=== PATIENT | female | born 1985 | race Caucasian/White ===

== ENCOUNTER 2022-02-16 12:10 | Outpatient (REF) | payer OTHER, SELFPAY ==
--- NOTE | ~2022-02-16 | XR_ITS ---
EXAMINATION: XR RIBS, BILATERAL CLINICAL INFORMATION: Bilateral rib pain COMPARISON: None TECHNIQUE: 3 views of the bilateral ribs were obtained. AP chest. FINDINGS: Lungs are clear. No consolidation, pneumothorax, or pleural effusion. The cardiomediastinal silhouette and pulmonary vasculature are normal. Osseous structures are unremarkable. Ribs are intact. No fractures are identified. XR/XR ribs BI min 4V w CXR1V IMPRESSION: Unremarkable examination.
[2022-02-16 14:01] LABS: Baso%MD 0.4 %; Eos%MD 0.7 %; Hematocrit 43.1 % (37.0-47.0); Hemoglobin 14.3 g/dl (12.0-16.0); IG%MD 0.2 %; Lymph%MD 30.3 %; Mean Corpuscular HGB Conc 33.2 g/dl (31.0-35.0); Mean Corpuscular Hemoglobin 28.4 pg (27.0-33.0); Mean Corpuscular Volume 85.7 fL (80.0-98.0); Mean Platelet Volume 10.1 fL (9.4-12.3); Mono%MD 6.9 %; Neut%MD 61.5 %; Platelet Count 285 X10*3/uL (160-400); Red Blood Count 5.03 X10*6/uL (4.20-5.50); Red Cell Distribution Width 12.2 % (11.0-16.0); White Blood Count 8.2 X10*3/uL (4.8-10.8)
[2022-02-16 14:15] LABS: Alanine Aminotransferase 23 U/L (0-31); Albumin Level 4.8 g/dL (3.5-5.0); Alkaline Phosphatase 62 U/L (39-117); Anion Gap 14 (12-20); Aspartate Amino Transferase 22 U/L (5-31); Blood Urea Nitrogen 11 mg/dL (9-16); Calcium 9.8 mg/dL (8.4-10.2); Carbon Dioxide 24 mmol/L (22-29); Chloride 104 mmol/L (96-108); Cholesterol 207 mg/dL; Estimated Glomerular Filt Rate > 60; Glucose Fasting 86 mg/dL (60-99); HDL Cholesterol 44 mg/dL; LDL Cholesterol Calculated 136 mg/dl; Rheumatoid Factor < 15.0 IU/mL (<15.0); Sodium 138 mmol/L (135-145); Total Protein 7.9 g/dL (6.5-8.0); Triglycerides 139 mg/dL
[2022-02-16 14:28] LABS: Band Neutrophils Percent 0 % (3-5); Eosinophils Absolute Manual 0.1 X10*3/uL (0.0-0.4); Eosinophils Percent Manual 1 % (0-4); Lymphocytes Absolute Manual 1.9 X10*3/uL (1.2-4.9); Lymphocytes Percent Manual 23 % (20-40); Monocytes Absolute Manual 0.6 X10*3/uL (0.1-1.2); Monocytes Percent Manual 7 % (2-11); Neutrophils Absolute Manual 5.7 X10*3/uL (2.0-8.3); Neutrophils Percent Manual 69 % (45-73)
[2022-02-16 14:29] LABS: Platelet Estimate NORMAL (NORMAL); Platelet Morphology Comment NORMAL; RBC Morphology NORMAL
[2022-02-16 14:39] LABS: TSH reflex Free T4 1.01 uIU/mL (0.32-4.0)
[2022-02-18 13:02] LABS: Cyclic Citrullinated Peptide <16 UNITS
[2022-02-19 11:21] LABS: Anti Nuclear Antibody Screen NEGATIVE (NEGATIVE)
== END 2022-02-16 12:11 | disposition home or self-care (01) ==
LOC: HO.HMGCX 12:10
PROVIDERS: PCP Internal Medicine; Visit Provider Internal Medicine
DX: Z00.00 Encounter for general adult medical examination without abnormal findings (principal); M25.569 Pain in unspecified knee; M25.50 Pain in unspecified joint; F32.A Depression, unspecified; R07.81 Pleurodynia
CPT/HCPCS: 36415; 71111; 80053; 80061; 84443; 85007; 85027; 86038; 86039; 86140; 86200; 86431

== ENCOUNTER 2024-02-04 11:43 | Outpatient (AMB) | payer OTHER, SELFPAY ==
[2024-02-04 12:05] VITALS: BP 102/60; PULSE 70; O2SAT 98; BMI 34.0
--- NOTE | 2024-02-04 12:05 | A.OFFPC_ITS ---
Vital Signs 02/04/24 12:05 Height 5 ft 2 in Weight 186 lb BMI 34.0 BP 102/60 Blood Pressure Location Lt brachial Position Sitting Pulse 70 Pulse Source Pulse Oximeter Pulse Oximetry (%) 98 Oxygen Delivery Method Room Air Intake Visit Reasons: Physical Intake Note: pt is here for her physical exam last pap: @ [facility] - 2019 - due this year Licensed Direct Entry Midwife Required: No Allergies No Known Allergies Allergy (Verified 02/04/24 12:06) Medication List - Last Reconciled 02/04/24 by Tatiana Chacon MD sertraline 100 mg PO BID valacyclovir 500 mg PO DAILY Tobacco use date assessed: 02/04/24 Dental Screening Dental Screen Date: 02/04/24 Did you have a dental visit in the last 12 months?: Yes Did you have a dental problem in the last 6 months where you did not have access to dental care?: No Was dental information given to patient?: Patient has dentist HPI Physical HPI Details Pt presents for PE. 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 1. Little interest or pleasure in doing things: not at all 2. Feeling down, depressed, or hopeless: not at all 3. Trouble falling or staying asleep, or sleeping too much: not at all 4. Feeling tired or having little energy: not at all 5. Poor appetite or overeating: not at all 6. Feeling bad about yourself - or that you are a failure or have let yourself or your family down: not at all 7. Trouble concentrating on things, such as reading the newspaper or watching television: not at all 8. Moving or speaking so slowly that other people could have noticed. Or the opposite - being so fidgety or restless that you have been moving around a lot more than usual: not at all 9. Thoughts that you would be better off or of hurting yourself in some way: not at all Total score: 0 Depression Screening Interpretation: Negative Depression Screening Done: Yes 91516 - PHQ-9 Billing: Yes Source: Developed by Drs. Reese Garcia, Diya Gardner, Ricki Cummings and colleagues, with an educational robert from [employer]. Thrive Questionnaire Date Thrive assessed: 02/04/24 I am a: Patient What is your living situation today?: I have a steady place to live Within the past 12 months, did the food you bought not last and you didn't have the money to get more?: I choose not to answer this question Within the past 12 months, did you worry whether your food would run out before you got money to buy more?: I choose not to answer this question Do you have trouble paying for medicines?: I choose not to answer this question Do you have trouble getting transportation to medical appointments?: I choose not to answer this question Do you have trouble paying your heating and electricity bill?: I choose not to answer this question Do you have trouble taking care of your child, family member or friend?: I choose not to answer this question Do you have trouble with day-to-day activities such as bathing, preparing meals, shopping, managing finances, etc.?: I choose not to answer this question Are you currently unemployed and looking for a job?: I choose not to answer this question Are you interested in more education?: I choose not to answer this question Please select the resources that you would like help with: Housing/Longterm Currently or been in a relationship where the following occur: I choose not to answer THRIVE Score: 0 AUDIT C Alcohol Use Questionnaire (AUDIT-C) 1. How often do you have a drink containing alcohol?: Never 3. How often do you have six or more drinks on one occasion?: Never Total Score: 0 Score Reviewed/Action Taken: Yes HESHAM-7 AMB Questionnaire HESHAM-7 Date HESHAM - 7 assessed: 02/04/24 Feeling nervous, anxious, or on edge: 0 = Not at all Not being able to stop or control worryin = Not at all Worrying too much about different things: 0 = Not at all Trouble relaxin = Not at all Being so restless that it is hard to sit still: 0 = Not at all Becoming easily annoyed or irritable: 1 = Several days Feeling afraid as if something awful might happen: 0 = Not at all Total HESHAM-7 score (0-4 normal; 5-9 mild; 10-14 moderate; 15-21 severe): 1 Source: Developed by Drs. Reese Garcia, Diya Gardner, Ricki Cummings and colleagues, with an educational robert from [employer]. HESHAM-7 Assessment Billing HESHAM-7 Assessment Tool: HESHAM-7 Assessment 18082 Review of Systems Const All systems reviewed & are unremarkable except as noted in HPI and below Eyes Reports no additional complaints ENT Reports no additional complaints Card Reports no additional complaints Resp Reports no additional complaints GI Reports no additional complaints Reports no additional complaints Physical exam (Primary Care) Vital Signs: Last Vital Signs Pulse 70 02/04/24 12:05 BP 102/60 02/04/24 12:05 Pulse Ox 98 02/04/24 12:05 Oxygen Delivery Method Room Air 02/04/24 12:05 BMI result Body Mass Index 34.0 Tobacco/Smoking Status: Tobacco use Status Tobacco use date assessed 02/04/24 02/04/24 12:08 Patient Tobacco Use Status Never used Tobacco 02/04/24 12:08 e-Cigarette/Vaping Use Never Used 02/04/24 12:08 PHQ-9: PHQ-9 Score PHQ-9: Total score 0 02/04/24 12:11 Depression Screening Interpretation: Negative Thrive Assessment: Date of Thrive Assessment Date Thrive assessed 02/04/24 02/04/24 12:08 Currently or been in a relationship where the following occur: I choose not to answer Const General: no acute distress HENMT Head: Yes normal to inspection Ears: hearing grossly normal bilaterally Mouth: Normal oral and palatal mucosa present Throat: Yes posterior oropharynx normal Neck Neck: Yes no meningeal signs and Yes supple Resp Effort & Inspection: normal respiratory effort Auscultation: clear to auscultation bilaterally Cardio Rhythm: regular rhythm Heart sounds: S1 normal heart sound present and S2 normal heart sound present GI Inspection: Yes normal to inspection Palpation (GI): Soft to palpation Percussion: Yes normal to percussion Auscultation: normal bowel sounds External Female Exam: normal external appearance Speculum Exam - Vagina: normal appearance of the vagina Speculum Exam - Cervix: normal appearance of the cervix Bimanual exam- vagina & uterus: normal bimanual exam Bimanual Exam- Adnexa, other: normal adnexae Neuro General: no meningeal signs Assessment and Plan Assessment & Plan (1) Annual physical exam: Code(s): Z00.00 - Encounter for general adult medical examination without abnormal findings Plan: Well-balanced diet regular exercise weight loss discussed with the patient. She will return for fasting blood work. Patient will have a mammogram scheduled. Pap smear was done today (2) Normal pelvic exam: Comment: 01/2024, IUD in place Code(s): Z01.419 - Encounter for gynecological examination (general) (routine) without a bnormal findings Orders: Orders Comprehensive [place]. Panel Fast Today Z00.00 - Encounter for general adult medical examination without abnormal findings Complete Blood Count Auto Diff Today Z00.00 - Encounter for general adult medical examination without abnormal findings TSH reflex Free T4 Today Z00.00 - Encounter for general adult medical examination without abnormal findings PAP Smear Today Z00.00 - Encounter for general adult medical examination without abnormal findings, Z01.419 - Encounter for gynecological examination (general) (routine) without abnormal findings Lipid Panel Today Z00.00 - Encounter for general adult medical examination without abnormal findings UA w Microscopic Today Z00.00 - Encounter for general adult medical examination without abnormal findings MM screening mammo BI Today Z12.31 - Encounter for screening mammogram for malignant neoplasm of breast Coding Level of Care Code Est Pt Prev Care 40-64y(52833) Diagnoses Annual physical exam Z00.00 Normal pelvic exam Z01.419 Additional Codes HESHAM-7 Assessment Billing - HESHAM-7 Assessment Tool: HESHAM-7 Assessment 59099 ([id number])
== END 2024-02-04 13:42 | disposition home or self-care (01) ==
PROVIDERS: PCP Internal Medicine; Visit Provider Internal Medicine
DX: Z00.00 Encounter for general adult medical examination without abnormal findings (principal)
CPT/HCPCS: 99396

== ENCOUNTER 2024-02-04 13:06 | Outpatient (REF) | payer OTHER, SELFPAY | END 2024-02-04 13:07 | disposition home or self-care (01) | LOC: HO.HMGCLNP 13:06 | PROVIDERS: Visit Provider Internal Medicine | DX: Z01.419 Encounter for gynecological examination (general) (routine) without abnormal findings (principal) | CPT/HCPCS: 88175 ==